=== PATIENT | female | born 1945 | race Caucasian/White ===

== ENCOUNTER 2020-07-30 20:29 | Emergency (ER) | payer MEDICARE, SELFPAY ==
--- NOTE | ~2020-07-30 | XR_ITS ---
EXAMINATION: XR hand RT min 3V DATE: 07/30/2020 21:12 INDICATION: Abrasions to the palmar aspect of the right second-fourth digits. TECHNIQUE: Posteroanterior, oblique and lateral views of the right hand were obtained. COMPARISON: None. FINDINGS: There is some bandaging material about the digits which minimally limits assessment of fine bone and soft tissue detail. Bone alignment is normal. No fracture. 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 Mild polyarticular osteoarthritis with typical distribution at the radial aspect of the carpus and at multiple predominantly distal interphalangeal joints. Soft tissue swelling at the right second pro ximal interphalangeal joint. No evident radiopaque foreign bodies. IMPRESSION: 1. No acute osseous abnormality or radiopaque foreign bodies. Reviewed, dictated and finalized at location A.
--- NOTE | 2020-07-30 20:41 | ED.GENADULT ---
HPI - General Adult General Chief complaint: Extremity Injury, Upper <Kenyon Villarreal PA-C - Last Filed: 07/30/20 21:39> Stated complaint: fingers injury <Kenyon Villarreal PA-C - Last Filed: 07/30/20 21:39> Time Seen by Provider: 07/30/20 20:41 <Kenyon Villarreal PA-C - Last Filed: 07/30/20 21:39> Source: patient and family <Kenyon Villarreal PA-C - Last Filed: 07/30/20 21:39> Mode of arrival: ambulatory <Kenyon Villarreal PA-C - Last Filed: 07/30/20 21:39> Limitations: no limitations <Kenyon Villarreal PA-C - Last Filed: 07/30/20 21:39> History of Present Illness HPI narrative: Patient is a 74-year-old female who presents with injuries to the right hand patient had a window closed on the right hand sustaining injuries to the second through third digits patient notes moderate aching pain also sustained some lacerations unsure as to her tetanus status on arrival to emergency department is in the room in no distress patient has not taken anything for her symptoms patient denies other injuries or complaints <Kenyon Villarreal PA-C - Last Filed: 07/30/20 21:39> Related Data Allergies/adverse reactions: Allergies Allergy/AdvReac Type Severity Reaction Status Date / Time TWILIGHT Allergy Uncoded 10/24/12 01:21 <Kenyon Villarreal PA-C - Last Filed: 07/30/20 21:39> Review of Systems Review of Systems: All systems reviewed & are unremarkable except as noted in HPI and below <Kenyon Villarreal PA-C - Last Filed: 07/30/20 21:39> [facility] Past Medical History Medical History: Medical History (Updated 07/30/20 @ 20:44 by Kenyon Villarreal PA-C) Hypertension <Kenyon Villarreal PA-C - Last Filed: 07/30/20 21:39> Social History Social History: Social History (Updated 07/30/20 @ 20:43 by Kenyon Villarreal PA-C) Smoking status: Never smoker Gender identity (if verbalized by the patient): Female <Kenyon Villarreal PA-C - Last Filed: 07/30/20 21:39> Exam Narrative: Exam Narrative: GENERAL: Well-appearing, well-nourished, and in no acute distress. HEAD: Normocephalic, atraumatic. EYES: PERRLA and EOMI. ENT: Nares clear, no rhinorrhea or epistaxis. Mucous membranes moist EXTREMITIES: Normal range of motion. No edema. Tenderness of the second through fourth digits of the right hand where she has flap lacerations palmar aspect of each digit SKIN: Warm, dry, no rash. NEURO: No focal deficits. Alert and oriented x3. Neurovascularly intact PSYCH: Normal mood and affect. <SARA Maloney Last Filed: 07/30/20 21:39> Course Course Emergency Course: Lacerations repaired in the emergency department patient agreeing to follow-up as directed tetanus updated <SARA Maloney Last Filed: 07/30/20 21:39> Procedures Laceration Laceration 1: Date: 07/30/20 <SARA Maloney Last Filed: 07/30/20 21:39> Time: 21:37 <SARA Maloney Last Filed: 07/30/20 21:39> Site: upper extremity <SARA Maloney Last Filed: 07/30/20 21:39> Side (If applicable): right (Index finger) <SARA Maloney Last Filed: 07/30/20 21:39> Size (cm): 1.5 <SARA Maloney Last Filed: 07/30/20 21:39> Description: flap <SARA Maloney Last Filed: 07/30/20 21:39> Depth: simple, single layer, involves muscle layer and involves tendon <SARA Maloney Last Filed: 07/30/20 21:39> Local Anesthetic: lidocaine 1% and other anesthetic <SARA Maloney Last Filed: 07/30/20 21:39> Pre-repair: wound explored, irrigated and irrigated extensively <SARA Maloney Last Filed: 07/30/20 21:39> Skin layer closed with: nylon <ASRA Maloney Last Filed: 07/30/20 21:39> Size (cm): 5-0 <Kenyon Villarreal PA-C - Last Filed: 07/30/20 21:39> Number of sutures: 4 <
== END 2020-07-30 21:46 | disposition home or self-care (01) ==
PROVIDERS: Emergency Provider General Practice; PCP Internal Medicine
DX: S61.210A Laceration without foreign body of right index finger without damage to nail, initial encounter (principal); S61.212A Laceration without foreign body of right middle finger without damage to nail, initial encounter; S61.214A Laceration without foreign body of right ring finger without damage to nail, initial encounter; I10 Essential (primary) hypertension; W20.8XXA Other cause of strike by thrown, projected or falling object, initial encounter
CPT/HCPCS: 12004; 73130; 99283

== ENCOUNTER 2022-05-31 10:47 | Outpatient (CLI) | payer OTHER, SELFPAY ==
--- NOTE | ~2022-05-31 | MR_ITS ---
EXAMINATION: MR lumbar spine wo con DATE: 05/31/2022 11:47 INDICATION: Lumbago. TECHNIQUE: Magnetic resonance imaging (MRI) of the lumbar spine was performed without intravenous con trast. Sequences included sagittal T2-weighted FSE, sagittal T2-weighted FS FSE, sagittal T1-weighted FSE, and axial T2-weighted FSE. COMPARISON: None FINDINGS: There is 13 degrees dextroscoliosis of thoracolumbar spine. Vertebral body heights are norm al. There is mildly decreased disc height at L4-L5. The distal spinal cord signal intensity is normal . The conus medullaris is at T12-L1. The following disc levels are specifically discussed: L1-L2: The disc does not extend beyond the endplate margin. There is mild bilateral facet joint osteo arthritis. There is no neural foraminal stenosis. There is no central canal stenosis. L2-L3: The disc is bulging. There is moderate bilateral facet joint osteoarthritis. There is mild feliciano ateral neural foraminal stenosis. There is no central canal stenosis. L3-L4: The disc is bulging. There is moderate bilateral facet joint osteoarthritis. There is mild feliciano ateral neural foraminal stenosis. There is mild central canal stenosis. L4-L5: The disc is bulging. There is severe bilateral facet joint osteoarthritis. There is mild bilat eral neural foraminal stenosis. There is mild central canal stenosis. L5-S1: The disc is bulging. There is mild bilateral facet joint osteoarthritis. There is mild bilater al neural foraminal stenosis. There is mild central canal stenosis. IMPRESSION: 1. Mild lumbar spondylosis. Reviewed, dictated and finalized at location A. IMPRESSION: 1. Mild lumbar spondylosis.
== END 2022-05-31 10:48 | disposition home or self-care (01) ==
PROVIDERS: PCP Internal Medicine
DX: M47.817 Spondylosis without myelopathy or radiculopathy, lumbosacral region (principal); M48.07 Spinal stenosis, lumbosacral region; M54.42 Lumbago with sciatica, left side
CPT/HCPCS: 72148